=== PATIENT | female | born 1950 | race Caucasian/White ===

== ENCOUNTER 2018-04-21 19:04 | Emergency (ER) | payer MEDICARE, SELFPAY ==
[2018-04-21 19:32] LABS: #Basophils 0.1 thou/uL (0.0-0.2); #Eosinphils 0.1 thou/uL (0.0-0.7); #Lymphocytes 2.4 thou/uL (1.20-3.40); #Monocytes 0.7 thou/uL (0.11-0.59); #Neutrophils 2.3 thou/uL (1.40-6.50); %Basophils 1.2 % (0.0-1.0); %Eosinophils 1.2 % (0.0-10.0); %Lymphocytes 43.8 % (21.0-51.0); %Monocytes 12.3 % (0.0-10.0); %Neutrophils 41.6 % (42.0-75.0); Hemoglobin 13.5 g/dL (12.0-16.0); Mean Corpuscular HGB CONC 32.7 g/dL (32.0-36.0); Mean Corpuscular Hemoglobin 30.5 pg (27.0-31.0); Mean Corpuscular Volume 93.2 fL (78.0-98.0); Platelet Count 211 thou/uL (130-400); RBC Distribution Width 11.1 % (11.5-14.5); Red Blood Cell (RBC) Count 4.43 mill/uL (4.20-5.40); White Blood Cell (WBC) Count 5.5 thou/uL (4.8-10.8)
[2018-04-21] MEDS ORDERED: Piperacillin/Tazobactam 3.375 GM VIAL ONE (19:35)
[2018-04-21] MEDS ORDERED: Sodium Chloride 0.9% 100 ML ONE (19:35)
[2018-04-21] MEDS ORDERED: Ondansetron HCl/PF 4 MG/2 ML Vial ONE (19:35)
[2018-04-21 19:48] LABS: PTT 25.5 SEC (22.9-36.1); Prothrombin Time 13.5 SEC (12.0-14.7)
[2018-04-21] MEDS ORDERED: Lidocaine 1% 20 ML MDV ONE (19:55)
[2018-04-21] MEDS ORDERED: Bacitracin Zinc 1 Packet ONE (20:45)
--- NOTE | 2018-04-21 21:08 | RAD ---
THREE VIEWS LEFT HAND: 04/21/18 HISTORY: Amputation left fifth finger with table saw. FINDINGS: There is amputation of the left small finger at the level of the distal portion of the proximal phala nx left small finger with overlying tiny osseous fragments and irregularity of the soft tissues. No a dditional fracture or dislocation is seen. IMPRESSION: Amputation left small finger at the level of the distal portion of the proximal phalanx. POS: [facility]
== END 2018-04-21 21:45 | disposition home or self-care (01) ==
LOC: NAV ERS 19:04
DX: S68.117A Complete traumatic metacarpophalangeal amputation of left little finger, initial encounter (principal); S61.211A Laceration without foreign body of left index finger without damage to nail, initial encounter; S61.215A Laceration without foreign body of left ring finger without damage to nail, initial encounter; S61.203A Unspecified open wound of left middle finger without damage to nail, initial encounter; S61.002A Unspecified open wound of left thumb without damage to nail, initial encounter; F41.9 Anxiety disorder, unspecified; W31.2XXA Contact with powered woodworking and forming machines, initial encounter; Y92.009 Unspecified place in unspecified non-institutional (private) residence as the place of occurrence of the external cause; Z85.3 Personal history of malignant neoplasm of breast; Z79.899 Other long term (current) drug therapy
CPT/HCPCS: 12002; 85025; 85610; 85730; 96365; 96375; 96376; J2001; J2270; J2405; J2543; J7050